=== PATIENT | female | born 1935 | race Caucasian/White ===

== ENCOUNTER → 2018-10-14 | Outpatient (CLI) | payer OTHER ==
[~2018-10-14] MED LIST: AMIT50 PO; ANAS1; Amitriptyline H50 MG PO; CONEST.9 PO; CORTEF PO; DOCU100 PO; Fludrocortison0.1 MG; Fludrocortison0.1 MG PO; HYDCOR10 PO; MULTIVITAMIN PO; NEBI5 PO; OMEP40CA12 PO; ONDA4ODT MM; Prilosec20 MG PO; [UNRECOGNIZED DRUG - OTHER] PO
[2018-10-14 12:24] LABS: Protein, Urine Quantitative 10.2 mg/dL (0.0-11.9)
== END | disposition home or self-care (01) ==
LOC: LAB 09:43 → LAB SHORT 09:43
PROVIDERS: Physician Assistant
DX: M54.5 Low back pain (principal)
CPT/HCPCS: 81050; 84156

== ENCOUNTER → 2018-12-25 | Outpatient (CLI) | payer OTHER ==
[2018-12-25 10:16] LABS: BASOPHILS ABSOLUTE AUTO 0.05 K/mm3 (0.00-0.23); BASOPHILS PERCENT AUTO 1 % (0-2); EOSINOPHILS ABSOLUTE AUTO 0.05 K/mm3 (0.00-0.68); EOSINOPHILS PERCENT AUTO 1 % (0-6); Hematocrit 35.9 % (33.0-51.0); Hemoglobin 12.8 g/dL (11.5-16.0); IMMATURE GRAN ABSOLUTE AUTO 0.02 K/mm3 (0.00-0.10); IMMATURE GRAN PERCENT AUTO 0 % (0-1); LYMPHOCYTES ABSOLUTE AUTO 1.29 K/mm3 (0.84-5.20); LYMPHOCYTES PERCENT AUTO 16 % (21-46); MONOCYTES ABSOLUTE AUTO 0.65 K/mm3 (0.16-1.47); MONOCYTES PERCENT AUTO 8 % (4-13); Mean Corpuscular HGB 33.3 pg (26.0-34.0); Mean Corpuscular HGB Conc 35.7 g/dL (31.5-36.5); Mean Corpuscular Volume 94 fL (80-100); Mean Platelet Volume 9.5 fL (9.1-12.4); NEUTROPHILS ABSOLUTE AUTO 5.92 K/mm3 (1.96-9.15); NEUTROPHILS PERCENT AUTO 74 % (41-73); Platelet Count 244 K/mm3 (150-400); RDW Coefficient Variation 12.6 % (11.7-14.2); RDW Standard Deviation 43.2 fL (35.1-46.3); Red Blood Cell Count 3.84 M/mm3 (3.80-5.20); White Blood Cell Count 7.98 K/mm3 (4.00-11.30)
[2018-12-25 10:25] LABS: Albumin, Blood 3.8 g/dL (3.4-5.0); Bilirubin, Total 0.7 mg/dL (0.1-1.0); Bun/Creatinine Ratio 19.6 (12.0-20.0); Calcium, Blood 8.9 mg/dL (8.5-10.1); Creatinine, Blood 1.02 mg/dL (0.40-1.00); Globulin, Blood 3.9 g/dL (2.2-4.0); Potassium, Blood 3.9 mmol/L (3.5-5.5); Total Protein, Blood 7.7 g/dL (6.4-8.2)
== END | disposition home or self-care (01) ==
LOC: LAB EV 10:09 → LAB SHORT 10:09
PROVIDERS: General Practice
DX: R10.30 Lower abdominal pain, unspecified (principal)
CPT/HCPCS: 80053; 85025

== ENCOUNTER → 2019-07-14 | Outpatient (CLI) | payer OTHER ==
[2019-07-14 08:56] LABS: BASOPHILS ABSOLUTE AUTO 0.07 K/mm3 (0.00-0.23); BASOPHILS PERCENT AUTO 1 % (0-2); EOSINOPHILS ABSOLUTE AUTO 0.09 K/mm3 (0.00-0.68); EOSINOPHILS PERCENT AUTO 2 % (0-6); Hematocrit 35.3 % (33.0-51.0); Hemoglobin 12.5 g/dL (11.5-16.0); IMMATURE GRAN ABSOLUTE AUTO 0.03 K/mm3 (0.00-0.10); IMMATURE GRAN PERCENT AUTO 1 % (0-1); LYMPHOCYTES ABSOLUTE AUTO 2.07 K/mm3 (0.84-5.20); LYMPHOCYTES PERCENT AUTO 40 % (21-46); MONOCYTES ABSOLUTE AUTO 0.62 K/mm3 (0.16-1.47); MONOCYTES PERCENT AUTO 12 % (4-13); Mean Corpuscular HGB 34.2 pg (26.0-34.0); Mean Corpuscular HGB Conc 35.4 g/dL (31.5-36.5); Mean Corpuscular Volume 96 fL (80-100); Mean Platelet Volume 9.7 fL (9.1-12.4); NEUTROPHILS ABSOLUTE AUTO 2.33 K/mm3 (1.96-9.15); NEUTROPHILS PERCENT AUTO 45 % (41-73); Platelet Count 237 K/mm3 (150-400); RDW Coefficient Variation 12.4 % (11.7-14.2); RDW Standard Deviation 44.3 fL (35.1-46.3); Red Blood Cell Count 3.66 M/mm3 (3.80-5.20); White Blood Cell Count 5.21 K/mm3 (4.00-11.30)
[2019-07-14 09:07] LABS: Alanine Aminotransfer (ALT/SGP 18 U/L (12-78); Albumin, Blood 3.9 g/dL (3.4-5.0); Albumin/Globulin Ratio 1.1 (0.8-1.8); Alk Phos 70 U/L (40-126); Anion Gap 14 mmol/L (6-16); Aspartate Aminotrans (AST/SGOT 22 U/L (12-37); Bilirubin, Total 0.5 mg/dL (0.1-1.0); Blood Urea Nitrogen 13 mg/dL (8-24); Bun/Creatinine Ratio 14.1 (12.0-20.0); CO2, Blood 22 mmol/L (21-32); Calcium, Blood 8.8 mg/dL (8.5-10.1); Chloride, Blood 102 mmol/L (98-108); Creatinine, Blood 0.92 mg/dL (0.40-1.00); Globulin, Blood 3.5 g/dL (2.2-4.0); Glomerular Filtration Rate 58 (60-); Glucose, Blood 75 mg/dL (70-99); Potassium, Blood 3.7 mmol/L (3.5-5.5); Sodium, Blood 138 mmol/L (136-145); Total Protein, Blood 7.4 g/dL (6.4-8.2)
[2019-07-14 09:12] LABS: Troponin I <0.017 ng/mL (0.000-0.040)
== END | disposition home or self-care (01) ==
LOC: LAB EV 08:50 → LAB SHORT 08:50
PROVIDERS: Physician Assistant
DX: R07.89 Other chest pain (principal)
CPT/HCPCS: 80053; 84484; 85025; 85379

== ENCOUNTER → 2019-11-16 | Outpatient (CLI) | payer OTHER ==
[2019-11-16 10:07] LABS: BASOPHILS ABSOLUTE AUTO 0.03 K/mm3 (0.00-0.23); BASOPHILS PERCENT AUTO 0 % (0-2); EOSINOPHILS ABSOLUTE AUTO 0.03 K/mm3 (0.00-0.68); EOSINOPHILS PERCENT AUTO 0 % (0-6); Hematocrit 32.6 % (33.0-51.0); Hemoglobin 11.4 g/dL (11.5-16.0); IMMATURE GRAN ABSOLUTE AUTO 0.03 K/mm3 (0.00-0.10); IMMATURE GRAN PERCENT AUTO 0 % (0-1); LYMPHOCYTES ABSOLUTE AUTO 0.92 K/mm3 (0.84-5.20); LYMPHOCYTES PERCENT AUTO 12 % (21-46); MONOCYTES ABSOLUTE AUTO 0.71 K/mm3 (0.16-1.47); MONOCYTES PERCENT AUTO 9 % (4-13); Mean Corpuscular HGB 32.4 pg (26.0-34.0); Mean Corpuscular Volume 93 fL (80-100); Mean Platelet Volume 9.1 fL (9.1-12.4); NEUTROPHILS ABSOLUTE AUTO 6.19 K/mm3 (1.96-9.15); NEUTROPHILS PERCENT AUTO 78 % (41-73); Platelet Count 247 K/mm3 (150-400); RDW Coefficient Variation 12.1 % (11.7-14.2); RDW Standard Deviation 40.8 fL (35.1-46.3); Red Blood Cell Count 3.52 M/mm3 (3.80-5.20); White Blood Cell Count 7.91 K/mm3 (4.00-11.30)
[2019-11-16 10:23] LABS: Anion Gap 12 mmol/L (6-16); Blood Urea Nitrogen 8 mg/dL (8-24); Bun/Creatinine Ratio 11.4 (12.0-20.0); CO2, Blood 24 mmol/L (21-32); Calcium, Blood 8.4 mg/dL (8.5-10.1); Chloride, Blood 97 mmol/L (98-108); Glomerular Filtration Rate >60 (60-); Glucose, Blood 105 mg/dL (70-99); Potassium, Blood 2.9 mmol/L (3.5-5.5); Sodium, Blood 133 mmol/L (136-145)
== END | disposition home or self-care (01) ==
LOC: LAB EV 10:03 → LAB SHORT 10:03
PROVIDERS: Family Medicine
DX: R10.32 Left lower quadrant pain (principal)
CPT/HCPCS: 80048; 85025

== ENCOUNTER → 2020-08-26 | Outpatient (CLI) | payer OTHER | END | disposition home or self-care (01) | LOC: LAB 11:50 → LAB SHORT 11:50 | DX: R19.7 Diarrhea, unspecified (principal) | CPT/HCPCS: 87493; 89055 ==

== ENCOUNTER → 2020-10-09 | Outpatient (CLI) | payer OTHER ==
[2020-10-10 13:33] LABS: Stool Occult Bld Immuno 1 Negative (NEGATIVE)
== END | disposition home or self-care (01) ==
LOC: LAB SHORT 11:10 → LAB 11:10
PROVIDERS: Family Medicine
DX: R19.5 Other fecal abnormalities (principal)
CPT/HCPCS: 82274

== ENCOUNTER 2021-11-07 00:10 | Emergency (ER) | payer OTHER ==
[~2021-11-07] VITALS: Ht 162.6 cm; Wt 54.4 kg
[2021-11-07] MEDS ORDERED: HYDR1TAB94 PO (01:55)
== END 2021-11-07 02:40 | disposition home or self-care (01) ==
LOC: ER 00:10
DX: S42.291A Other displaced fracture of upper end of right humerus, initial encounter for closed fracture (principal); Z85.528 Personal history of other malignant neoplasm of kidney; Z85.3 Personal history of malignant neoplasm of breast; Z88.8 Allergy status to other drugs, medicaments and biological substances; Z88.2 Allergy status to sulfonamides; Z79.899 Other long term (current) drug therapy; W18.2XXA Fall in (into) shower or empty bathtub, initial encounter
CPT/HCPCS: 29105; 73060; 96374; 96375; 99283-25; A9270; J2270; J2405

== ENCOUNTER 2023-02-16 08:49 | Inpatient (IN) | payer OTHER ==
[~2023-02-16 08:49] MED LIST changes: -CORTEF PO; +HYDR1TAB94 PO; +Hydrocortisone5 MG PO
[2023-02-16 09:08] LABS: BASOPHILS ABSOLUTE AUTO 0.04 K/mm3 (0.00-0.23); BASOPHILS PERCENT AUTO 0 % (0-2); EOSINOPHILS ABSOLUTE AUTO 0.06 K/mm3 (0.00-0.68); EOSINOPHILS PERCENT AUTO 1 % (0-6); Hematocrit 36.1 % (33.0-51.0); Hemoglobin 13.5 g/dL (11.5-16.0); IMMATURE GRAN ABSOLUTE AUTO 0.07 K/mm3 (0.00-0.10); IMMATURE GRAN PERCENT AUTO 1 % (0-1); LYMPHOCYTES ABSOLUTE AUTO 1.09 K/mm3 (0.84-5.20); LYMPHOCYTES PERCENT AUTO 10 % (21-46); MONOCYTES PERCENT AUTO 6 % (4-13); Mean Corpuscular HGB 33.3 pg (26.0-34.0); Mean Corpuscular HGB Conc 37.4 g/dL (31.5-36.5); Mean Corpuscular Volume 89 fL (80-100); Mean Platelet Volume 8.9 fL (9.1-12.4); NEUTROPHILS ABSOLUTE AUTO 8.77 K/mm3 (1.96-9.15); NEUTROPHILS PERCENT AUTO 82 % (41-73); Platelet Count 257 K/mm3 (150-400); RDW Coefficient Variation 11.3 % (11.7-14.2); RDW Standard Deviation 36.6 fL (35.1-46.3); Red Blood Cell Count 4.05 M/mm3 (3.80-5.20); White Blood Cell Count 10.63 K/mm3 (4.00-11.30)
[2023-02-16] MEDS ORDERED: OMEP20ER PO (09:08)
[2023-02-16 09:25] LABS: Albumin, Blood 3.8 g/dL (3.4-5.0); Albumin/Globulin Ratio 1.2 (0.8-1.8); Bilirubin, Total 0.9 mg/dL (0.1-1.0); Bun/Creatinine Ratio 19.5 (12.0-20.0); Calcium, Blood 8.8 mg/dL (8.5-10.1); Creatinine, Blood 0.62 mg/dL (0.40-1.00); Globulin, Blood 3.3 g/dL (2.2-4.0); Potassium, Blood 3.3 mmol/L (3.5-5.5); Total Protein, Blood 7.1 g/dL (6.4-8.2)
[2023-02-16 10:37] LABS: Magnesium, Blood 1.6 mg/dL (1.6-2.4); Phosphorus, Blood 3.2 mg/dL (2.5-4.9)
[2023-02-16 11:15] LABS: Source, Urine Clean Catch
[2023-02-16 11:22] LABS: Appearance, Urine Clear (Clear); Bilirubin, Urine Neg (Neg); Blood, Urine 2+ (Neg); Color, Urine Yellow (P-Yellow); Glucose Qualitative, Urine Neg (Neg); Ketones, Urine 2+ (Neg); Leukocyte Esterase, Urine Neg (Neg); Nitrite, Urine Neg (Neg); Protein, Urine 2+ (Neg); Specific Gravity, Urine 1.015 (1.003-1.022); Urobilinogen, Urine NORM (Normal)
[2023-02-16 11:28] LABS: Amorphous Light (0-Heavy); Bacteria Rare /hpf; Mucus Light (0-Heavy); Squamous Epithelial Cells Few /hpf (Few); White Blood Cells, Urine 0-2 /hpf (0-5)
[2023-02-16 12:50] LABS: Source, Urine Foley catheter
[2023-02-16 13:18] LABS: Appearance, Urine Clear (Clear); Bilirubin, Urine Neg (Neg); Blood, Urine 2+ (Neg); Color, Urine Yellow (P-Yellow); Glucose Qualitative, Urine Neg (Neg); Ketones, Urine 2+ (Neg); Leukocyte Esterase, Urine Neg (Neg); Nitrite, Urine Neg (Neg); Protein, Urine 1+ (Neg); Specific Gravity, Urine 1.015 (1.003-1.022); Urobilinogen, Urine NORM (Normal)
[2023-02-16 13:48] LABS: Amorphous Light (0-Heavy); Bacteria Mod /hpf; Mucus Light (0-Heavy); Squamous Epithelial Cells Rare /hpf (Few); White Blood Cells, Urine 0-2 /hpf (0-5)
[2023-02-16] MEDS ORDERED: LINZESS72 MCG PO (17:16)
[2023-02-16] MEDS ORDERED: DULO60 PO (17:16)
--- NOTE | 2023-02-16 18:45 | NUR ---
pt arrived to 355 via gurney from ED, report was obtained, pt is a/ox4, pleasant and coopertive with care, follows commands well, reports chronic pain to her low abd secondary to diverticulitis, states thats why I fell, lungs are clear t/o, resp even and unlabored, no cough noted, hrr, no edema noted, ppp+2, cap refill <3 sec, vs stable, afebrile, iv site to rac site is clear and patent, infusing potassium slowly due to pain, btx4, abd flat soft tender in lower quads, briefs in place, folwey cath was placed in the ER, drainig clear aniceto urine, skin c/w/d except for some bruising to face, deanna waite, oriented to room layout and call system, call light in reach.
[2023-02-16 18:58] VITALS: BP 178/69
[2023-02-16 20:11] LABS: Bun/Creatinine Ratio 14.7 (12.0-20.0); Calcium, Blood 8.5 mg/dL (8.5-10.1); Creatinine, Blood 0.61 mg/dL (0.40-1.00); Potassium, Blood 3.8 mmol/L (3.5-5.5)
[2023-02-17 04:35] VITALS: BP 144/75
[2023-02-17 06:04] LABS: Albumin, Blood 3.5 g/dL (3.4-5.0); Albumin/Globulin Ratio 1.1 (0.8-1.8); Bilirubin, Total 0.8 mg/dL (0.1-1.0); Bun/Creatinine Ratio 13.8 (12.0-20.0); Calcium, Blood 8.6 mg/dL (8.5-10.1); Creatinine, Blood 0.65 mg/dL (0.40-1.00); Globulin, Blood 3.2 g/dL (2.2-4.0); Magnesium, Blood 1.6 mg/dL (1.6-2.4); Potassium, Blood 3.7 mmol/L (3.5-5.5); Total Protein, Blood 6.7 g/dL (6.4-8.2)
--- NOTE | 2023-02-17 07:29 | NUR ---
Shift Summary Scott catheter in place, patent and draining yellow urine. No c/o pain or nausea t/o shift. NS running at 100, IV potassium finished infusing. Slept well t/o the night.
[2023-02-17 08:33] VITALS: BP 159/71
[2023-02-17 11:07] VITALS: BP 167/63
--- NOTE | 2023-02-17 11:22 | NUR ---
DR. CRUZ NOTIFIED PT C/O SEVERE DIZZIENESS, B/P ELEVATED, NAUSEA-MEDICATED W/ ZOFRAN. NO FURTHER ORDERS AT THIS TIME. POSSIBLE VERTIGO, NO NYSTAGMUS AT THIS TIME. PUPIL EQUAL BILATERAL, REACTIVE. PT ABLE TO EXTEND ARMS OUT, NO DRIFT NOTED.
[2023-02-17 14:13] LABS: Bun/Creatinine Ratio 19.4 (12.0-20.0); Calcium, Blood 8.5 mg/dL (8.5-10.1); Creatinine, Blood 0.62 mg/dL (0.40-1.00); Potassium, Blood 3.5 mmol/L (3.5-5.5)
[2023-02-17 16:39] VITALS: BP 156/71
--- NOTE | 2023-02-17 18:36 | NUR ---
SHIFT SUMMARY PT A&OX4 AND IN PLEASENT MOOD T/O SHIFT. TOLERATING PO INTAKE WELL. C/O DIZZINESS T/O SHIFT-POSSIBLE VERTIGO, CORTEF DOSE ADJUST. REPORTED TO DR. KEY THIS SHIFT. VSS. NS @ 100. CALL LIGHT W/IN REACH. NEURO CHECKS NEG T/O SHIFT.
[2023-02-17 19:08] VITALS: BP 172/65
[2023-02-17 21:23] LABS: Bun/Creatinine Ratio 15.5 (12.0-20.0); Calcium, Blood 8.1 mg/dL (8.5-10.1); Creatinine, Blood 0.58 mg/dL (0.40-1.00); Potassium, Blood 3.5 mmol/L (3.5-5.5)
--- NOTE | 2023-02-17 23:00 | NUR ---
Vertigo esisode - Pt experiencing strong vertigo even after recieving 20 mg of Cortef earlier today. Vertigo was triggered by pt rolling onto her right side which is the side her subdural hematoma is on.
--- NOTE | 2023-02-18 04:56 | NUR ---
Shift Summary Pt c/o dizzyness and vertigo, see previous nurse note. After recieving Zofran pt felt better and was able to sleep on R side if she moved slowly. Scott patent and clean, draining yellow urine. Pt slept well through most of the night.
[2023-02-18 05:35] LABS: Bun/Creatinine Ratio 12.7 (12.0-20.0); Calcium, Blood 8.5 mg/dL (8.5-10.1); Creatinine, Blood 0.63 mg/dL (0.40-1.00); Potassium, Blood 3.6 mmol/L (3.5-5.5)
[2023-02-18 07:43] VITALS: BP 174/69
--- NOTE | 2023-02-18 08:06 | NUR ---
pt laying in bed awake a/ox3, pleasant and cooperative with care, follows commands well, reports bad night, and really feeling unwell, states she is dizzy and nauseated, when moved her up in bed states the sides of her neck hurt, can't handle the bed moving to sitting position but a little at a time, battery installer are equal, dpfe equal, deanna, lungs are clear dim in bases, resp even and unlabored, no cough noted, hrr, no edema noted, ppp+1, cap refill <3sec , vs stable, afebrile, iv sites are clear and patent, infusing fluid as ordered, btx4, abd flat soft nontender, voids without diff, skin c/w/d, maew, deanna, call light in reach.
[2023-02-18 13:31] LABS: Bun/Creatinine Ratio 18.4 (12.0-20.0); Calcium, Blood 8.3 mg/dL (8.5-10.1); Creatinine, Blood 0.54 mg/dL (0.40-1.00); Potassium, Blood 3.5 mmol/L (3.5-5.5)
[2023-02-18 15:44] VITALS: BP 151/59
--- NOTE | 2023-02-18 18:03 | NUR ---
Pt up to chair with one assist, doing better than this am. no acute changes this shift. call light in reach.
[2023-02-18 21:58] LABS: Bun/Creatinine Ratio 20.1 (12.0-20.0); Calcium, Blood 8.2 mg/dL (8.5-10.1); Creatinine, Blood 0.6 mg/dL (0.40-1.00); Potassium, Blood 3.6 mmol/L (3.5-5.5)
[2023-02-18 22:21] VITALS: BP 178/71
--- NOTE | 2023-02-19 04:06 | NUR ---
SHIFT SUMMARY NOC PT A/O X 4. NO ACUTE CHANGES TO REPORT. PT HAS FOLLOW UP HEAD CT SCAN SCHEDULED FOR 02/19/23 FOR SUBDURAL HEMATOMA FROM RECENT FALLS AT HOME. PT HAS NS INFUSING @ 75 MLS/HR. PT HAS BERNAL IN PLACE DRAINING CLEAR YELLOW URINE TO GRAVITY. PT DAUGHTER CALLED FOR UPDATE AND WAS CONCERNED ABOUT PT RESUMING STEROID THERAPY, WELL IBS RX. PT DAUGHTER ALSO WANTS TO BE INCLUDED IN CONFERENCE CALL WHEN PROVIDER IS IN ROOM DURING ROUNDING TO STAY UP TO DATE ON PT CONDITION AND PLAN, PT AGREED AND HAS NO ISSUE WITH THIS. DAUGHTER NAME IS LISSY AND LEFT A CONTACT NUMBER SHE CAN BE REACHED AT ANYTIME . HER SISTER GABRIEL WILL BE COMING UP FROM [place] AND WILL BE HERE ON THURSDAY TO HOPEFULLY TAKE PT HOME AFTER DISCHARGE. AWAITING AM BMP FOR LATEST SODIUM LAB TO SEE IF IT HAS IMPROVED FROM NA 126 FROM YESTERDAY. PT HAD C/O OF NAUSEA WHEN MOVING TO FAST TO R SIDE AND WAS MEDICATED PER EMAR. PT IS CURRENTLY RESTING WITH BED IN LOWEST POSITION, AND CALL LIGHT WITHIN REACH.
[2023-02-19 04:58] VITALS: BP 140/64
[2023-02-19 05:28] LABS: Bun/Creatinine Ratio 14.1 (12.0-20.0); Calcium, Blood 8.3 mg/dL (8.5-10.1); Creatinine, Blood 0.71 mg/dL (0.40-1.00); Potassium, Blood 3.5 mmol/L (3.5-5.5)
[2023-02-19 07:37] VITALS: BP 139/55
[2023-02-19 16:24] VITALS: BP 150/61
[2023-02-19 19:40] VITALS: BP 152/66
--- NOTE | 2023-02-20 03:10 | NUR ---
SHIFT SUMMARY NOC PT A/O X 4. PLEASANT AND COOPERATIVE WITH CARE. PT HAS HAD NO C/O OF NAUSEA DURING SHIFT. PT HAS NS INFUSING @ 100 MLS/HR TO RESOLVE HYPONATREMIA, WITH SODIUM 134 YESTERDAY. PT EXPECTED TO DISCHARGE HOME TOMORROW IF SODIUM LABS COME BACK WNL. PT YOUNGEST DAUGHTER GABRIEL WILL BE DRIVING UP FROM [place] TO PICK PT UP AND TAKE HOME. PT HAD ONE C/O OF GENERALIZED PAIN T/O AND WAS MEDICATED WITH TYLENOL AND PAIN RESOLVED. PT IS CURRENTLY RESTING WITH BED IN LOWEST POSITION, AND CALL LIGHT WITHIN REACH.
[2023-02-20 04:30] VITALS: BP 165/58
[2023-02-20 07:26] VITALS: BP 164/66
[2023-02-20 09:41] LABS: BASOPHILS ABSOLUTE AUTO 0.04 K/mm3 (0.00-0.23); BASOPHILS PERCENT AUTO 1 % (0-2); EOSINOPHILS ABSOLUTE AUTO 0.08 K/mm3 (0.00-0.68); EOSINOPHILS PERCENT AUTO 2 % (0-6); Hematocrit 33.6 % (33.0-51.0); Hemoglobin 12.1 g/dL (11.5-16.0); IMMATURE GRAN ABSOLUTE AUTO 0.02 K/mm3 (0.00-0.10); IMMATURE GRAN PERCENT AUTO 0 % (0-1); LYMPHOCYTES ABSOLUTE AUTO 0.81 K/mm3 (0.84-5.20); LYMPHOCYTES PERCENT AUTO 16 % (21-46); MONOCYTES ABSOLUTE AUTO 0.62 K/mm3 (0.16-1.47); MONOCYTES PERCENT AUTO 12 % (4-13); Mean Corpuscular HGB 33.1 pg (26.0-34.0); Mean Corpuscular Volume 92 fL (80-100); Mean Platelet Volume 8.9 fL (9.1-12.4); NEUTROPHILS ABSOLUTE AUTO 3.57 K/mm3 (1.96-9.15); NEUTROPHILS PERCENT AUTO 69 % (41-73); Platelet Count 237 K/mm3 (150-400); RDW Coefficient Variation 11.8 % (11.7-14.2); RDW Standard Deviation 39.9 fL (35.1-46.3); Red Blood Cell Count 3.66 M/mm3 (3.80-5.20); White Blood Cell Count 5.14 K/mm3 (4.00-11.30)
--- NOTE | 2023-02-20 09:44 | NUR ---
PLEASANT AND COOPERATIVE TO CARE, MAKES NEEDS KNOWN, CALL LIGHT WITH IN REACH, TO BE DISCHARGED HOME TODAY, BERNAL AND AC IV REMOVED. AMBULATED WITH PT IN HALLS WITH A FWW
[2023-02-20 09:59] LABS: Bun/Creatinine Ratio 11.4 (12.0-20.0); Calcium, Blood 8.5 mg/dL (8.5-10.1); Creatinine, Blood 0.61 mg/dL (0.40-1.00); Potassium, Blood 3.1 mmol/L (3.5-5.5)
[2023-02-20] MEDS ORDERED: ONDA4 PO (11:23)
[2023-02-20] MEDS ORDERED: Hydrocortisone5 MG PO (11:30)
[2023-02-20] MEDS ORDERED: MELA3 PO (11:30)
--- NOTE | 2023-02-20 15:04 | NUR ---
[id number] PATIENT DISCHARGED VIA W/C, PATIENT AND FRIEND STATED UNDERSTANDING OF DISCHARGE INSTRUCTIONS, VERY PLEASANT TO CARE
== END 2023-02-20 14:35 | disposition home or self-care (01) | DRG 83 ==
LOC: ER 08:49 → MEDS 12:29 → ENPENDDIS 02-20 11:16 → MEDS 02-20 14:35
PROVIDERS: Physician Assistant; Student in an Organized Health Care Education/Training Program; ADMIT Internal Medicine
PROC: 0T9B70Z Drainage of Bladder with Drainage Device, Via Natural or Artificial Opening (ICD-10-PCS; principal; 2023-02-16)
DX: S06.5X9A Traumatic subdural hemorrhage with loss of consciousness of unspecified duration, initial encounter (principal); E27.49 Other adrenocortical insufficiency; E87.1 Hypo-osmolality and hyponatremia; K21.9 Gastro-esophageal reflux disease without esophagitis; K58.9 Irritable bowel syndrome, unspecified; M81.0 Age-related osteoporosis without current pathological fracture; E55.9 Vitamin D deficiency, unspecified; I73.9 Peripheral vascular disease, unspecified; E87.6 Hypokalemia; I10 Essential (primary) hypertension; R33.9 Retention of urine, unspecified; Z87.19 Personal history of other diseases of the digestive system; Z85.3 Personal history of malignant neoplasm of breast; Z90.5 Acquired absence of kidney; Z85.520 Personal history of malignant carcinoid tumor of kidney; Z90.710 Acquired absence of both cervix and uterus; Z98.890 Other specified postprocedural states; Z88.2 Allergy status to sulfonamides; Z88.8 Allergy status to other drugs, medicaments and biological substances; Z79.899 Other long term (current) drug therapy; W01.198A Fall on same level from slipping, tripping and stumbling with subsequent striking against other object, initial encounter
CPT/HCPCS: 36415; 51702; 51798; 70450; 72125; 74177; 80048; 80053; 81001; 83690; 83735; 84100; 85025; 87086; 93005; 93010; 96361-59; 96365-59; 96366-59; 97110; 97116; 97162; 97166; 97530; 97535; 99285-25; A9270; J2001; J3480; J7030; J7050; Q9967

== ENCOUNTER → 2023-03-25 | Outpatient (CLI) | payer OTHER ==
[~2023-03-25] MED LIST changes: +DULO60 PO; +LINZESS72 MCG PO; +MELA3 PO; +OMEP20ER PO; +ONDA4 PO
[2023-03-25 13:09] LABS: Albumin, Blood 3.7 g/dL (3.4-5.0); Bilirubin, Total 0.5 mg/dL (0.1-1.0); Bun/Creatinine Ratio 21.6 (12.0-20.0); Creatinine, Blood 0.7 mg/dL (0.40-1.00); Globulin, Blood 3.7 g/dL (2.2-4.0); Potassium, Blood 4.2 mmol/L (3.5-5.5); Total Protein, Blood 7.4 g/dL (6.4-8.2)
[2023-03-26 20:06] LABS: HEMOGLOBIN A1C 6.1 % (4.8-5.6)
== END | disposition home or self-care (01) ==
LOC: LAB SHORT 09:15 → LAB 09:15
PROVIDERS: Physician Assistant
DX: E78.5 Hyperlipidemia, unspecified (principal); R73.01 Impaired fasting glucose
CPT/HCPCS: 80053; 83036

== ENCOUNTER → 2023-04-10 | Outpatient (CLI) | payer OTHER ==
[2023-04-10 18:31] LABS: Albumin, Blood 3.9 g/dL (3.4-5.0); Albumin/Globulin Ratio 1.1 (0.8-1.8); Bilirubin, Total 0.3 mg/dL (0.1-1.0); Bun/Creatinine Ratio 20.8 (12.0-20.0); Calcium, Blood 9.2 mg/dL (8.5-10.1); Creatinine, Blood 0.67 mg/dL (0.40-1.00); Globulin, Blood 3.6 g/dL (2.2-4.0); Total Protein, Blood 7.5 g/dL (6.4-8.2)
== END | disposition home or self-care (01) ==
LOC: LAB SHORT 17:33 → LAB 17:33
PROVIDERS: Physician Assistant
DX: E87.1 Hypo-osmolality and hyponatremia (principal)
CPT/HCPCS: 80053

== ENCOUNTER 2023-04-30 09:11 | Emergency (ER) | payer OTHER ==
[~2023-04-30] VITALS: Ht 165.1 cm; Wt 54.4 kg
[~2023-04-30 09:11] MED LIST changes: +DULO30 PO; -DULO60 PO
[2023-04-30 11:09] LABS: Hematocrit 35.7 % (33.0-51.0); Hemoglobin 12.9 g/dL (11.5-16.0); Mean Corpuscular HGB Conc 36.1 g/dL (31.5-36.5); Mean Corpuscular Volume 91 fL (80-100); Mean Platelet Volume 9.1 fL (9.1-12.4); Platelet Count 196 K/mm3 (150-400); RDW Coefficient Variation 12.1 % (11.7-14.2); RDW Standard Deviation 40.6 fL (35.1-46.3); Red Blood Cell Count 3.91 M/mm3 (3.80-5.20); White Blood Cell Count 2.66 K/mm3 (4.00-11.30)
[2023-04-30 11:38] LABS: Magnesium, Blood 1.6 mg/dL (1.6-2.4)
[2023-04-30 11:45] LABS: Influenza A, PCR NEGATIVE (NEGATIVE); Influenza B, PCR NEGATIVE (NEGATIVE); Resp Syncytial Virus, PCR NEGATIVE (NEGATIVE)
[2023-04-30 11:46] LABS: SARS-Cov-2 (COVID-19) PCR, MMC POSITIVE (NEGATIVE)
[2023-04-30 11:46] LABS: Albumin, Blood 3.4 g/dL (3.4-5.0); Bilirubin, Total 0.3 mg/dL (0.1-1.0); Bun/Creatinine Ratio 27.8 (12.0-20.0); Calcium, Blood 8.6 mg/dL (8.5-10.1); Creatinine, Blood 0.65 mg/dL (0.40-1.00); Globulin, Blood 3.5 g/dL (2.2-4.0); Phosphorus, Blood 3.3 mg/dL (2.5-4.9); Potassium, Blood 3.8 mmol/L (3.5-5.5); Thyroid Stimulating Hormone 1.59 uIU/mL (0.360-4.800); Total Protein, Blood 6.9 g/dL (6.4-8.2)
[2023-04-30 11:49] LABS: BAND PERCENT MAN 3 % (0-8); BASOPHILS PERCENT MAN 0 % (0-2); EOSINOPHILS PERCENT MAN 0 % (0-6); LYMPHOCYTES % ATYPICAL MANUAL 2 % (0-0); LYMPHOCYTES ABSOLUTE MAN 0.87 K/mm3 (0.84-5.20); LYMPHOCYTES PERCENT MAN 31 % (21-46); METAMYELOCYTE ABSOLUTE MAN 0.02 K/mm3 (0.00-0.00); METAMYELOCYTE PERCENT MAN 1 % (0-0); MONOCYTES ABSOLUTE MAN 0.34 K/mm3 (0.16-1.47); MONOCYTES PERCENT MAN 13 % (4-13); MYELOCYTE ABSOLUTE MAN 0.02 K/mm3 (0.00-0.00); MYELOCYTE PERCENT MAN 1 % (0-0); NEUTROPHILS ABSOLUTE MAN 1.38 K/mm3 (1.96-9.15); SEG NEUTROPHILS PERCENT MAN 49 % (41-73); TOTAL CELLS COUNTED 100
[2023-04-30 12:25] LABS: Source, Urine Clean Catch
[2023-04-30 12:28] LABS: Appearance, Urine Clear (Clear); Bilirubin, Urine Neg (Neg); Blood, Urine 1+ (Neg); Color, Urine Yellow (P-Yellow); Glucose Qualitative, Urine Neg (Neg); Ketones, Urine 2+ (Neg); Leukocyte Esterase, Urine Neg (Neg); Nitrite, Urine Neg (Neg); Protein, Urine Neg (Neg); Specific Gravity, Urine 1.005 (1.003-1.022); Urobilinogen, Urine NORM (Normal)
[2023-04-30 12:36] LABS: Bacteria Not Seen /hpf; Squamous Epithelial Cells Not Seen /hpf (Few); White Blood Cells, Urine Not Seen /hpf (0-5)
[2023-04-30] MEDS ORDERED: Ibuprofen600 MG PO (17:47)
[2023-04-30] MEDS ORDERED: ACET500 PO (17:47)
[2023-04-30] MEDS ORDERED: OXAYDO5 M1 PO (17:54)
[2023-04-30 18:00] VITALS: BP 156/79
== END 2023-04-30 20:10 | disposition home or self-care (01) ==
LOC: ER 09:11
PROVIDERS: Emergency Medicine
DX: U07.1 COVID-19 (principal); S22.089A Unspecified fracture of T11-T12 vertebra, initial encounter for closed fracture; X50.0XXA Overexertion from strenuous movement or load, initial encounter; Z88.8 Allergy status to other drugs, medicaments and biological substances; Z88.2 Allergy status to sulfonamides; Z79.899 Other long term (current) drug therapy; Z85.3 Personal history of malignant neoplasm of breast
CPT/HCPCS: 0241U; 51798; 72146; 72148; 74177; 80053; 81001; 83735; 84100; 84443; 84484; 85025; 93005; 93010; 96374-59; 96375; 99285-25; A9270; J1885; J2405; J3010; Q9967

== ENCOUNTER 2023-05-04 20:57 | Inpatient (IN) | payer OTHER ==
[~2023-05-04] VITALS: Ht 165.1 cm; Wt 54.5 kg
[~2023-05-04 20:57] MED LIST changes: +ACET500 PO; +Ibuprofen600 MG PO; +OXAYDO5 M1 PO
[2023-05-04 23:59] LABS: Albumin, Blood 3.3 g/dL (3.4-5.0); Bilirubin, Total 0.5 mg/dL (0.1-1.0); Bun/Creatinine Ratio 16.8 (12.0-20.0); Calcium, Blood 8.1 mg/dL (8.5-10.1); Creatinine, Blood 0.48 mg/dL (0.40-1.00); Globulin, Blood 3.2 g/dL (2.2-4.0); Potassium, Blood 3.2 mmol/L (3.5-5.5); Total Protein, Blood 6.5 g/dL (6.4-8.2)
[2023-05-05 01:00] LABS: BASOPHILS ABSOLUTE AUTO 0.02 K/mm3 (0.00-0.23); BASOPHILS PERCENT AUTO 1 % (0-2); EOSINOPHILS ABSOLUTE AUTO 0.01 K/mm3 (0.00-0.68); EOSINOPHILS PERCENT AUTO 0 % (0-6); Hematocrit 29.9 % (33.0-51.0); IMMATURE GRAN ABSOLUTE AUTO 0.03 K/mm3 (0.00-0.10); IMMATURE GRAN PERCENT AUTO 1 % (0-1); LYMPHOCYTES ABSOLUTE AUTO 0.72 K/mm3 (0.84-5.20); LYMPHOCYTES PERCENT AUTO 25 % (21-46); MONOCYTES PERCENT AUTO 14 % (4-13); Mean Corpuscular Volume 85 fL (80-100); Mean Platelet Volume 9.9 fL (9.1-12.4); NEUTROPHILS ABSOLUTE AUTO 1.73 K/mm3 (1.96-9.15); NEUTROPHILS PERCENT AUTO 60 % (41-73); NRBC ABSOLUTE 0.02 K/mm3 (0.00-0.02); NRBC Auto 0.7 /100 WBC (0.0-0.2); RDW Coefficient Variation 11.6 % (11.7-14.2); RDW Standard Deviation 35.6 fL (35.1-46.3); Red Blood Cell Count 3.52 M/mm3 (3.80-5.20)
[2023-05-05 01:10] LABS: Platelet Count 180 K/mm3 (150-400); White Blood Cell Count 3.12 K/mm3 (4.00-11.30)
[2023-05-05 02:04] LABS: Magnesium, Blood 1.3 mg/dL (1.6-2.4)
[2023-05-05 03:10] VITALS: BP 158/98
--- NOTE | 2023-05-05 05:52 | NUR ---
SHIFT SUMMARY ED ADMIT AT APPROX 0300, SLIDE TX FROM JACK D/T RECENT T-12 COMPRESSION FX. PT C/O PAIN TO BACK, MEDICATED PER EMAR. MAGNESIUM AND IV FLUIDS INFUSING PER EMAR. VSS, NO ACUTE CHANGES AT THIS TIME. BED IN LOWEST POSIITON WITH CALL LIGHT IN REACH. WILL CONTINUE TO MONITOR AND REPORT TO ONCOMING RN.
[2023-05-05 05:53] LABS: Calcium, Blood 8.1 mg/dL (8.5-10.1); Creatinine, Blood 0.54 mg/dL (0.40-1.00)
[2023-05-05 08:38] VITALS: BP 148/74
[2023-05-05 08:54] LABS: Source, Urine Clean Catch
[2023-05-05 08:59] LABS: Appearance, Urine Clear (Clear); Bilirubin, Urine Neg (Neg); Blood, Urine 2+ (Neg); Color, Urine Yellow (P-Yellow); Glucose Qualitative, Urine Neg (Neg); Ketones, Urine 3+ (Neg); Leukocyte Esterase, Urine Neg (Neg); Nitrite, Urine Neg (Neg); Protein, Urine 1+ (Neg); Specific Gravity, Urine 1.005 (1.003-1.022); Urobilinogen, Urine NORM (Normal)
[2023-05-05 09:10] LABS: Amorphous Light (0-Heavy); Bacteria Not Seen /hpf; Squamous Epithelial Cells Rare /hpf (Few); White Blood Cells, Urine 0-2 /hpf (0-5)
[2023-05-05 11:41] LABS: BASOPHILS ABSOLUTE AUTO 0.01 K/mm3 (0.00-0.23); BASOPHILS PERCENT AUTO 0 % (0-2); EOSINOPHILS ABSOLUTE AUTO 0.02 K/mm3 (0.00-0.68); EOSINOPHILS PERCENT AUTO 1 % (0-6); Hematocrit 32.8 % (33.0-51.0); Hemoglobin 12.3 g/dL (11.5-16.0); IMMATURE GRAN ABSOLUTE AUTO 0.03 K/mm3 (0.00-0.10); IMMATURE GRAN PERCENT AUTO 1 % (0-1); LYMPHOCYTES ABSOLUTE AUTO 0.71 K/mm3 (0.84-5.20); LYMPHOCYTES PERCENT AUTO 20 % (21-46); MONOCYTES ABSOLUTE AUTO 0.43 K/mm3 (0.16-1.47); MONOCYTES PERCENT AUTO 12 % (4-13); Mean Corpuscular HGB 32.5 pg (26.0-34.0); Mean Corpuscular HGB Conc 37.5 g/dL (31.5-36.5); Mean Corpuscular Volume 87 fL (80-100); Mean Platelet Volume 9.1 fL (9.1-12.4); NEUTROPHILS ABSOLUTE AUTO 2.36 K/mm3 (1.96-9.15); NEUTROPHILS PERCENT AUTO 66 % (41-73); Platelet Count 193 K/mm3 (150-400); RDW Coefficient Variation 11.5 % (11.7-14.2); RDW Standard Deviation 36.8 fL (35.1-46.3); Red Blood Cell Count 3.79 M/mm3 (3.80-5.20); White Blood Cell Count 3.56 K/mm3 (4.00-11.30)
--- NOTE | 2023-05-05 11:59 | NUR ---
Pt A&OX4 and denies pain, dyspnea, anxiety, and nausea at this time. Pt reports recently being . She reports her of over 70 years this last August from Alzheimer's Disease. She reports having 4 children, all of whom live in [place]. Plan is for Pt to move down to [place] with family when she D/C from the hospital. Engaged in therapeutic conversation regarding code status. Educated on life sustaining treatments including risks and implications to CPR/Intubation. Pt reports wishes are DNR. Continued supportive conversation. Spoke with Dr Dukes and discussed case. Placed DNR order in [facility] per V/O from Dr Dukes. Spoke with Primary RN Darci and discussed case. Palliative Care will remain available
[2023-05-05 14:33] LABS: Albumin, Blood 3.3 g/dL (3.4-5.0); Anion Gap 7 mmol/L (6-16); Blood Urea Nitrogen 9 mg/dL (8-24); Bun/Creatinine Ratio 15.2 (12.0-20.0); CO2, Blood 24 mmol/L (21-32); Calcium, Blood 7.8 mg/dL (8.5-10.1); Chloride, Blood 89 mmol/L (98-108); Creatinine, Blood 0.59 mg/dL (0.40-1.00); Glomerular Filtration Rate 88 (60-); Glucose, Blood 118 mg/dL (70-99); Phosphorus, Blood 2.6 mg/dL (2.5-4.9); Potassium, Blood 3.2 mmol/L (3.5-5.5); Sodium, Blood 120 mmol/L (136-145)
[2023-05-05 15:47] VITALS: BP 154/89
[2023-05-05 17:59] LABS: Bun/Creatinine Ratio 15.5 (12.0-20.0); Calcium, Blood 7.7 mg/dL (8.5-10.1); Creatinine, Blood 0.52 mg/dL (0.40-1.00); Potassium, Blood 3.6 mmol/L (3.5-5.5)
--- NOTE | 2023-05-05 18:10 | NUR ---
THE PATIENT IS A&O X4, FOLLOWS COMMANDS AND USES CALL LIGHT NEEDED, THE PATIENT NEEDED A NEW A IV THE AFTERNOON, AND IT WAS REPLACED. THE PATIENT IS RESTING IN HER BED COMPLAINING OF LEG CRAMPS. WILL CONTINUE TO MONIT
[2023-05-05 19:54] VITALS: BP 195/86
[2023-05-05 21:05] VITALS: BP 154/60
--- NOTE | 2023-05-05 22:52 | NUR ---
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 FENTANYL 25MCG IV AND TYLENOL 650MG PO PRN RECIEVED, AWAITING EFFECT. KPAD ALSO COMMENCED. RICHARD (RIDES SUPERVISOR) NOTIFIED AND MAGNESIUM LEVEL WAS ADDED TO UPCOMING CMP LAB DRAW. WILL MONITOR FOR MEDICATION EFFECT AND REVIEW LAB RESULTS.
[2023-05-05 23:46] LABS: Bun/Creatinine Ratio 20.6 (12.0-20.0); Calcium, Blood 7.9 mg/dL (8.5-10.1); Creatinine, Blood 0.54 mg/dL (0.40-1.00); Potassium, Blood 3.5 mmol/L (3.5-5.5)
--- NOTE | 2023-05-06 00:18 | NUR ---
CRITICAL NA NOW 118, TEJINDER (STEM ROLLER OPERATOR) NOTIFIED W/NS RX'D AT 150 ML/HR.
[2023-05-06 02:16] VITALS: BP 146/75
[2023-05-06 05:47] LABS: Bun/Creatinine Ratio 17.9 (12.0-20.0); Calcium, Blood 7.7 mg/dL (8.5-10.1); Creatinine, Blood 0.5 mg/dL (0.40-1.00); Potassium, Blood 3.2 mmol/L (3.5-5.5)
--- NOTE | 2023-05-06 06:14 | NUR ---
CRITICAL SODIUM REMAINS 118. PRIOR ORDER WAS TO COMMENCE CONTINUOUS NS AT 150 ML/HR. DISCUSSED W/STONEWORKING BELT SANDER (JOSELYN HOGAN) D/T LAB VALUE UNCHANGED AND NO CHANGE IN PT CONDITION.
[2023-05-06 08:01] VITALS: BP 184/83
[2023-05-06 15:58] VITALS: BP 138/63
[2023-05-06 16:55] LABS: Albumin, Blood 3.1 g/dL (3.4-5.0); Anion Gap 10 mmol/L (6-16); Blood Urea Nitrogen 6 mg/dL (8-24); Bun/Creatinine Ratio 12.7 (12.0-20.0); CO2, Blood 20 mmol/L (21-32); Calcium, Blood 7.8 mg/dL (8.5-10.1); Chloride, Blood 89 mmol/L (98-108); Creatinine, Blood 0.47 mg/dL (0.40-1.00); Glomerular Filtration Rate 93 (60-); Glucose, Blood 104 mg/dL (70-99); Phosphorus, Blood 2.2 mg/dL (2.5-4.9); Potassium, Blood 3.5 mmol/L (3.5-5.5); Sodium, Blood 119 mmol/L (136-145)
--- NOTE | 2023-05-06 17:58 | NUR ---
THE PATIENT IS A&O X4 WITH STAND BY ASSIST. THE PATIENT HAD A CRITICAL LAB, LOW SODIUM THAT WAS CALLED TO HER DOCTOR, THE PATIENT WAS PLACED ON A [address] MANCUSO AFTER HIS CONSULTATION. THE PATIENT'S FAMILY IS IN THE ROOM WITH HER, I WILL CONTINUE TO MONITOR.
[2023-05-06 19:16] VITALS: BP 156/70
--- NOTE | 2023-05-07 02:27 | NUR ---
REPORT RECEIVED VERIFIED A/O FAMILY AT BEDSIDE WAITING DR MANCUSO. PT DROWSEY FROM PREVIOUS MEDICATION. 1999 DR MANCUSO CALL WITH NEW ORDERS, ORDERS IMPLEMEMTED. FAMILY DECIDED NOT TO WAIT FOR MD AND WENT HOME.
[2023-05-07 02:38] VITALS: BP 150/67
[2023-05-07 06:14] LABS: Anion Gap 9 mmol/L (6-16); Blood Urea Nitrogen 7 mg/dL (8-24); Bun/Creatinine Ratio 11.5 (12.0-20.0); CO2, Blood 23 mmol/L (21-32); Calcium, Blood 7.7 mg/dL (8.5-10.1); Chloride, Blood 90 mmol/L (98-108); Creatinine, Blood 0.61 mg/dL (0.40-1.00); Glomerular Filtration Rate 87 (60-); Glucose, Blood 82 mg/dL (70-99); Magnesium, Blood 1.8 mg/dL (1.6-2.4); Phosphorus, Blood 2.9 mg/dL (2.5-4.9); Sodium, Blood 122 mmol/L (136-145)
[2023-05-07 07:56] VITALS: BP 159/83
--- NOTE | 2023-05-07 09:00 | NUR ---
Pt laying in bed very shakey this am, can't tolerate the bed being raised very much, a/ox4, pleasant and coopertive with care, follows commands well, states she just doesn't feel well, lungs are clear t/o, resp even and unlabored, no cough noted, hrr, no edema noted, ppp faint, cap refill <3 sec, vs stable, afebrile, iv site is clear and patent, bt not heard, abd flat soft nontender, voids without diff, skin c/w/d, maew, deanna, call light in reach. medicated with zofran for nausea.
[2023-05-07 09:11] LABS: BASOPHILS ABSOLUTE AUTO 0.01 K/mm3 (0.00-0.23); BASOPHILS PERCENT AUTO 0 % (0-2); EOSINOPHILS ABSOLUTE AUTO 0.05 K/mm3 (0.00-0.68); EOSINOPHILS PERCENT AUTO 1 % (0-6); IMMATURE GRAN ABSOLUTE AUTO 0.05 K/mm3 (0.00-0.10); IMMATURE GRAN PERCENT AUTO 1 % (0-1); LYMPHOCYTES ABSOLUTE AUTO 1.26 K/mm3 (0.84-5.20); LYMPHOCYTES PERCENT AUTO 31 % (21-46); MONOCYTES ABSOLUTE AUTO 0.67 K/mm3 (0.16-1.47); MONOCYTES PERCENT AUTO 17 % (4-13); Mean Corpuscular HGB 32.4 pg (26.0-34.0); Mean Corpuscular HGB Conc 37.9 g/dL (31.5-36.5); Mean Corpuscular Volume 85 fL (80-100); NEUTROPHILS ABSOLUTE AUTO 1.99 K/mm3 (1.96-9.15); NEUTROPHILS PERCENT AUTO 50 % (41-73)
[2023-05-07 09:13] LABS: Red Blood Cell Count 3.64 M/mm3 (3.80-5.20); White Blood Cell Count 3.92 K/mm3 (4.00-11.30)
[2023-05-07 09:14] LABS: Hematocrit 30.6 % (33.0-51.0)
[2023-05-07 09:16] LABS: Mean Platelet Volume 9.2 fL (9.1-12.4); Platelet Count 260 K/mm3 (150-400)
[2023-05-07 09:17] LABS: RDW Coefficient Variation 11.7 % (11.7-14.2); RDW Standard Deviation 36.1 fL (35.1-46.3)
--- NOTE | 2023-05-07 11:07 | NUR ---
OT here to work with pt, gave her fentanyl for pain and so she can help with tolerating OT. daughter in room, call light in reach.
--- NOTE | 2023-05-07 14:07 | NUR ---
ASSUMED CARE 1400
[2023-05-07 15:19] VITALS: BP 152/77
--- NOTE | 2023-05-07 19:04 | NUR ---
PT HAS HAD FAMILY IN TO VISIT TODAY. SOME NAUSEA THIS KIARA. MED PER EMAR. FEELS FENTANYL MAKES HER A LITTLE OFF. TRIED TYLENOL TO SEE IF WILL HELP . PAIN IN L QUAD ABD. NO OTHER CONCERNS NOTED THIS AFT. BED IN LOW POSOTION, CALL LITE IN REACH, CALLS APPROP
[2023-05-07 19:52] VITALS: BP 174/79
[2023-05-08] VITALS (7 sets, daily range): BP systolic 142–174; BP diastolic 68–91
--- NOTE | 2023-05-08 03:06 | NUR ---
REPORT RECEIVED VERIFIED, PT QUIET IN BED VERY APPROPRIATE YET WITHDRAWN HAS NO COMPLAINTS STATES SHE FEELS GOOD BUT WANTS TO BE HOME. PT FOCUSING ON SLEEPING AND GETTIGN THROUGH THE NIGHT. DR MANCUSO IN TO SEE PT NEW ORDERS FOR MORE NA, PT SWALLOW INTACT SO WAS ABLE TO TAKE MEDICATION.
[2023-05-08 05:41] LABS: Hematocrit 33.1 % (33.0-51.0); Hemoglobin 12.4 g/dL (11.5-16.0)
[2023-05-08 06:17] LABS: Albumin, Blood 3.1 g/dL (3.4-5.0); Anion Gap 10 mmol/L (6-16); Blood Urea Nitrogen 10 mg/dL (8-24); Bun/Creatinine Ratio 15.6 (12.0-20.0); CO2, Blood 19 mmol/L (21-32); Calcium, Blood 8.3 mg/dL (8.5-10.1); Chloride, Blood 101 mmol/L (98-108); Creatinine, Blood 0.64 mg/dL (0.40-1.00); Glomerular Filtration Rate 86 (60-); Glucose, Blood 83 mg/dL (70-99); Magnesium, Blood 1.7 mg/dL (1.6-2.4); Phosphorus, Blood 2.5 mg/dL (2.5-4.9); Potassium, Blood 3.1 mmol/L (3.5-5.5); Sodium, Blood 130 mmol/L (136-145)
--- NOTE | 2023-05-08 07:29 | NUR ---
REPORT GIVEN, PT ASSISTED TO BSC, TRANSFER WELL HAD LOOSE STOOL THE SOLID BM. NO CHANGE IN CONDITION
--- NOTE | 2023-05-08 19:08 | NUR ---
PT PLEASANT COOP TODAY. NO C/O PAIN UNTIL THIS KIARA. MED PER EMAR. DAUGHTER IN ROOM MOST OF DAY. HOPEFUL FOR DISCHARGE TOMORROW. DR MANCUSO CUT SODIUM PO BACK TO 1 GRAM DOSING. STOOLS NOW EMPTIED AND LOOSE. HOLDING ALL STOOL SOFTENERS. NO OTHER CONCERNS NOTED. BEDIN LOW POSITION, CALL Jhoana ITAmelie IN REACH, CALLS APPROP
--- NOTE | 2023-05-08 20:25 | NUR ---
REPORT RECEIVED, ASSISTED UP OOB WITH WALKER TO BATHROOM, PT GAINING MORE STRENGTH,. HYDRALAZINE GIVEN FOR ELEVATED BP. PT STATES SHE FEELS GOOD BETTER THENHAS BEEN.
--- NOTE | 2023-05-09 01:56 | NUR ---
PT SLEEPING NO C/O PAIN NO DISTRESS.
[2023-05-09 05:45] VITALS: BP 166/73
[2023-05-09 05:50] LABS: Hematocrit 32.7 % (33.0-51.0); Hemoglobin 12.1 g/dL (11.5-16.0)
[2023-05-09 06:14] LABS: Albumin, Blood 3.1 g/dL (3.4-5.0); Anion Gap 7 mmol/L (6-16); Blood Urea Nitrogen 11 mg/dL (8-24); Bun/Creatinine Ratio 16.2 (12.0-20.0); CO2, Blood 20 mmol/L (21-32); Calcium, Blood 8.6 mg/dL (8.5-10.1); Chloride, Blood 106 mmol/L (98-108); Creatinine, Blood 0.68 mg/dL (0.40-1.00); Glomerular Filtration Rate 85 (60-); Glucose, Blood 91 mg/dL (70-99); Magnesium, Blood 1.7 mg/dL (1.6-2.4); Phosphorus, Blood 2.6 mg/dL (2.5-4.9); Potassium, Blood 3.2 mmol/L (3.5-5.5); Sodium, Blood 133 mmol/L (136-145)
[2023-05-09 08:05] VITALS: BP 152/69
[2023-05-09] MEDS ORDERED: ACET325 PO (13:15)
[2023-05-09] MEDS ORDERED: Cortef20 MG PO (13:17)
[2023-05-09] MEDS ORDERED: OXYC5 PO (13:22)
[2023-05-09] MEDS ORDERED: DOCUZEN 8.6-501 EACH PO (13:23)
[2023-05-09] MEDS ORDERED: FURO20 PO (13:23)
[2023-05-09] MEDS ORDERED: Hydralazine HCl10 MG PO (13:24)
[2023-05-09] MEDS ORDERED: METO10SY PO (13:26)
[2023-05-09] MEDS ORDERED: MIRT15 PO (13:27)
[2023-05-09] MEDS ORDERED: Klor-Con M1010 MEQ PO (13:28)
[2023-05-09] MEDS ORDERED: SODCHL1 PO ×2 (13:28→13:29)
[2023-05-09] MEDS ORDERED: SPIR25 PO (13:29)
--- NOTE | 2023-05-09 13:38 | NUR ---
CYMBALTA MEDICATION THIS RN CALLED DR. RENAE AND DISCUSSED THAT CYMBALTA WAS NOT ON DISCHARGE MEDICATION LIST AND WAS ON PT'S LIST OF MEDICATIONS FROM HOME. DR. RENAE GAVE AN ORDER TO TAKE MEDICATION OFF LIST DUE TO PT NOT TAKING THE MEDICATION AT THIS TIME. THIS RN TOOK CYMBALTA OFF OF PT'S DISCHARGE MED LIST PER DR. RENAE ORDER.
--- NOTE | 2023-05-09 14:28 | NUR ---
SHIFT/DISCHARGE SUMMARY Pt remains A&O x3 this shift. VSS. Isolation for Covid. Resp even nonlabored on RA. No cough. Pt up with 1 p ast to bsc. Med taking am meds while on BSC. Zofran IV given and resolved nausea. Tolerating meals. All discharge instructions reviewed with pt and daughter with return verbal understanding. Pt to lobby with all belongings via transfer chair.
== END 2023-05-09 14:39 | disposition home health service (06) | DRG 641 ==
LOC: ER 20:57 → MEDS 20:58 → ENPENDDIS 05-09 10:51 → MEDS 05-09 14:39
PROVIDERS: Family Medicine; Internal Medicine Nephrology; Student in an Organized Health Care Education/Training Program; ADMIT Internal Medicine
DX: E87.1 Hypo-osmolality and hyponatremia (principal); E27.40 Unspecified adrenocortical insufficiency; I12.9 Hypertensive chronic kidney disease with stage 1 through stage 4 chronic kidney disease, or unspecified chronic kidney disease; E78.5 Hyperlipidemia, unspecified; K21.9 Gastro-esophageal reflux disease without esophagitis; K58.1 Irritable bowel syndrome with constipation; E87.6 Hypokalemia; E83.39 Other disorders of phosphorus metabolism; E88.09 Other disorders of plasma-protein metabolism, not elsewhere classified; N18.2 Chronic kidney disease, stage 2 (mild); K57.30 Diverticulosis of large intestine without perforation or abscess without bleeding; D63.1 Anemia in chronic kidney disease; M81.0 Age-related osteoporosis without current pathological fracture; E83.42 Hypomagnesemia; E86.0 Dehydration; M48.54XD Collapsed vertebra, not elsewhere classified, thoracic region, subsequent encounter for fracture with routine healing; Z79.899 Other long term (current) drug therapy; Z86.010 Personal history of colon polyps; Z98.890 Other specified postprocedural states; Z88.8 Allergy status to other drugs, medicaments and biological substances; Z88.2 Allergy status to sulfonamides; Z87.19 Personal history of other diseases of the digestive system; Z90.5 Acquired absence of kidney; Z90.710 Acquired absence of both cervix and uterus; Z90.49 Acquired absence of other specified parts of digestive tract; Z85.528 Personal history of other malignant neoplasm of kidney; Z90.6 Acquired absence of other parts of urinary tract; Z79.891 Long term (current) use of opiate analgesic
CPT/HCPCS: 36415; 74177; 80048; 80053; 80069; 81001; 82947; 83735; 83930; 84132; 84295; 84439; 84550; 85014; 85018; 85025; 96361; 96372; 96374-59; 96375; 96376; 97110; 97162; 97165; 97530; 97535; 99285-25; A9270; G0378; J0360; J1650; J1720; J1940; J2270; J2405; J3010; J3475; J3480; J7030; J7050; J7060; Q9967